=== PATIENT | female | born 1955 | race Caucasian/White ===

== ENCOUNTER 2016-07-22 18:31 | Emergency (ER) | payer BC ==
[~2016-07-22] VITALS: Ht 165.1 cm; Wt 65.8 kg
[~2016-07-22 18:31] MED LIST: CLIN300C3 PO; CPR500T PO; CYCL10TA9 PO; ESTR2TAB PO; GABA400T PO; GABA600T2; GABA600T2 PO; GBPN600T PO; HYDR-3454 PO; MECL-124 PO; MECL12.579 PO; MODA200T PO; OXC40TCR; OXC40TCR PO; OXYC40TA49 PO; PREG75CA PO; PRM25T; SIMV5TAB6 PO; TRAM50TA2 PO; VNL37.5T PO; ZLP10T PO; [UNRECOGNIZED DRUG - CODE] PO; [UNRECOGNIZED DRUG - REMARK]
[2016-07-22] MEDS ORDERED: MODA200T39 PO (19:09)
[2016-07-22] MEDS ORDERED: ESCI10TA55 PO (19:09)
[2016-07-22] MEDS ORDERED: ONDA8TAB12 PO (19:09)
[2016-07-22] MEDS ORDERED: NCT21TD TD (19:09)
[2016-07-22] MEDS ORDERED: ZOLP10TA5 PO (19:09)
[2016-07-22] MEDS ORDERED: OXYC10TA55 PO (19:09)
[2016-07-22] MEDS ORDERED: GABA800T2 PO (19:09)
[2016-07-22] MEDS ORDERED: BUSP15TA60 PO (19:09)
[2016-07-22] MEDS ORDERED: SERT50TA9 PO (19:09)
[2016-07-22] MEDS ORDERED: AMOXICILLIN 500 MG (POLYMOX) CAP PO STA (19:44)
--- NOTE | 2016-07-22 19:44 | ED EENT ---
History of Present Illness General Chief Complaint: Dental Problems/Pain Stated Complaint: L SIDE DENTAL PAIN Nursing Triage Note: C/O LEFT UPPER REAR DENTAL PAIN SINCE PM 07/21/16. History of Present Illness Time seen by provider: 19:20 Initial Comments Left upper dental pain 24 hours. Patient reports taking ibuprofen 400 mg 3 hours ago with no relief of symptoms. Per K Tracs the patient received OxyContin 10 mg #90 on 07/11/16, patient denies taking any OxyContin since yesterday. She reports she is trying to wean off of these however per K Tracs it does show that she has been getting 90 OxyContin monthly 20 mg 06/12/16 and 30 mg 05/12/16. She also gets Ambien 10 mg #30 and modafinil 200 mg #60 monthly. She reports decreased by mouth intake. As it's painful. She has been drinking extra water. Timing/Duration: gradual Prearrival Treatment: over the counter meds (ibuprofen) Modifying Factors: Improves With Rest Associated Symptoms: facial pain/swelling, malaise, No poor fluid intake, poor solids intake Allergies and Home Medications Allergies Coded Allergies: NKANo Known Allergies (Verified Allergy, Unknown, 05/29/08) Home Medications Amoxicillin 500 Mg Capsule, 500 MG PO TID, #30 Ref 0 Prescribed by: JUAN ROSE on 07/22/161944 Buspirone HCl 15 Mg Tablet, 1 TAB PO UD, #90 (Reported) Escitalopram Oxalate 10 Mg Tablet, 1 TAB PO UD, #60 (Reported) Gabapentin 800 Mg Tablet, 1 TAB PO UD, #90 (Reported) Modafinil 200 Mg Tablet, 1 TAB PO UD, #60 (Reported) Nicotine 1 Each Patch.td24, 1 PATCH TD UD, #28 (Reported) Ondansetron HCl 8 Mg Tablet, 1 TAB PO UD, #30 (Reported) Oxycodone HCl 10 Mg Tab.er.12h, 1 TAB PO UD, #90 (Reported) Sertraline HCl 50 Mg Tablet, 1 TAB PO UD, #10 (Reported) Zolpidem Tartrate 10 Mg Tablet, 1 TAB PO UD, #30 (Reported) Review of Systems Constitutional: no symptoms reported, see HPI Eyes: No Symptoms Reported, See HPI Ears: No Symptoms Reported, See HPI Nose: no symptoms reported, see HPI Mouth: see HPI, pain (left upper teeth), swelling Throat: no symptoms reported, see HPI Respiratory: no symptoms reported, see HPI Cardiovascular: no symptoms reported, see HPI Gastrointestinal: no symptoms reported, see HPI Musculoskeletal: no symptoms reported, see HPI Skin: no symptoms reported, see HPI Neurological: No Symptoms Reported, See HPI Hematologic/Lymphatic: No Symptoms Reported, See HPI Immunological/Allergic: no symptoms reported, see HPI All Other Systems Reviewed Negative Unless Noted: Yes Past Hapraft-Lbyuui-Tjzvts Hx Patient Social History Alcohol Use: Denies Use Recreational Drug Use: No Smoking Status: Current Everyday Smoker Type Used: Cigarettes 2nd Hand Smoke Exposure: Yes Recent Foreign Travel: No Contact w/Someone Who Travel: No Recent Infectious Disease Expo: No Recent Hopitalizations: No Immunizations Up To Date Tetanus Booster (TDap): Less than 5yrs Date of Influenza Vaccine: Jan 22, 2012 Seasonal Allergies Seasonal Allergies: No Surgeries HX Surgeries: Yes (back) Surgeries: Gallbladder, Hysterectomy, Orthopedic Respiratory Hx Respiratory Disorders: No Cardiovascular Hx Cardiac Disorders: No Neurological Hx Neurological Disorders: No Reproductive System : No Hx Reproductive Disorders: No Sexually Transmitted Disease: No 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 Genitourinary Hx Genitourinary Disorders: No Gastrointestinal Hx Gastrointestinal Disorders: No Musculoskeletal Hx Musculoskeletal Disorders: Yes Musculoskeletal Disorders: Fibromyalgia, Chronic Back Pain Endocrine Hx Endocrine Disorders: No HEENT HX ENT Disorders: No Cancer Hx Cancer: No Psychosocial Hx Psychiatric Problems: No Integumentary HX Skin/Integumentary Disorder: No Blood Transfusions Hx Blood Disorders: No Reviewed Nursing Assessment Reviewed/Agree w Nursing PMH: Yes Physical Exam Vital Signs Vital Sign - Last 12Hours 07/22/16 19:09 Temp 98.1 Pulse 98 Resp 18 B/P (MAP) 145/101 Pulse Ox 100 O2 Delivery Room Air General Appearance: WD/WN, no apparent distress Eyes: bilateral eye EOMI, bilateral eye PERRL, bilateral eye normal inspection Ears: bilateral ear TM normal, bilateral ear auricle normal, bilateral ear canal normal Nose: normal inspection, No active bleeding, No discharge, No sinus tenderness Mouth/Throat: normal mouth inspection, pharynx normal, dental tenderness ( right upper), maxillary swelling, No pharynx swelling, No pharynx tenderness, No tongue swollen, No tonsillar exudate Neck: non-tender, full range of motion, supple, normal inspection, No lymphadenopathy (R), No lymphadenopathy (L) Cardiovascular: normal peripheral pulses, regular rate, rhythm, no murmur Respiratory: chest non-tender, lungs clear Neurologic/Psychiatric: no motor/sensory deficits, alert, normal mood/affect, oriented x 3 Skin: normal color, warm/dry Progress/Results/Core Measures Results/Orders My Orders Orders - JUAN ROSE Lidocaine 2% Viscous 15 Ml (Xylocaine Vi (07/22/16 19:45) Amoxicillin Capsule (Polymox Capsule) (07/22/16 19:44) Medications Given in ED Current Medications Medications Dose Ordered Sig/Luke Route Start Time Stop Time Status Last Admin Dose Admin Lidocaine HCl 5 ml ONCE ONCE PO 07/22/16 19:45 07/22/16 19:46 DC 07/22/16 19:39 5 ML Vital Signs/I&O Vital Sign - Last 12Hours 07/22/16 07/22/16 19:09 19:50 Temp 98.1 98.1 Pulse 98 98 Resp 18 18 B/P (MAP) 145/101 Pulse Ox 100 100 O2 Delivery Room Air Blood Pressure Mean: 116 Progress Note : Time: 19:40 Progress Note Viscous lidocaine on 2 x 2's, applied to area of tenderness. Instructed to remove the before eating, drinking or sleep. Patient verbalized understanding. Departure Impression Impression: Primary Impression: Pain, dental Disposition: 01 HOME, SELF-CARE Condition: Stable Departure-Patient Inst. Decision time for Depature: 19:30 Referrals: REHAN DEL VALLE MD (PCP/Family) Primary Care Physician Patient Instructions: Dental Pain (DC) Add. Discharge Instructions: All discharge instructions reviewed with patient and/or family. Voiced understanding. Follow up with Dr. Horton in 2-3 days. Warm moist compresses to cheek. Use lidocaine gauze, every 4-6 hours for pain. Remove before sleeping Use Ibuprofen 600mg every 8 hours. Leave bridge out. Take antibiotics as prescribed. Use Oxycontin for severe pain, as previously prescribed. Scripts Amoxicillin (Amoxicillin) 500 Mg Capsule 500 MG PO TID, #30 CAP 0 Refills Prov: JUAN ROSE 07/22/16 Copy Copies To 1: REHAN DEL VALLE MD, AMY ARNP Jul 22, 2016 19:44
[2016-07-22] MEDS ORDERED: AMOX500C2 PO (19:45)
[2016-07-22] MEDS ORDERED: LIDOCAINE 2% VISCOUS 15 ML UDC PO ONE (19:45)
[2016-07-22 19:50] VITALS: BP 145/101
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
== END 2016-07-22 19:47 | disposition home or self-care (01) ==
LOC: EDUNIT# 18:31 → ER 18:32
DX: K08.9 Disorder of teeth and supporting structures, unspecified (principal); F17.210 Nicotine dependence, cigarettes, uncomplicated
CPT/HCPCS: 99282

== ENCOUNTER 2016-08-18 08:02 | Outpatient (CLI) | payer BC ==
[~2016-08-18] VITALS: Ht 165.1 cm; Wt 65.8 kg
[~2016-08-18 08:02] MED LIST changes: +AMOX500C2 PO; +BUSP15TA60 PO; +ESCI10TA55 PO; +GABA800T2 PO; +MODA200T39 PO; +NCT21TD TD; +ONDA8TAB12 PO; +OXYC10TA55 PO; +SERT50TA9 PO; +ZOLP10TA5 PO
[2016-08-18] MEDS ORDERED: BUPIVACAINE 0.5% 30 ML (SENSORCAINE) VIAL ONE (08:05)
[2016-08-18] MEDS ORDERED: LIDOCAINE 1% INJ 20 ML (XYLOCAINE) VIAL ONE (08:05)
[2016-08-18] MEDS ORDERED: TRIAMCINOLONE ACET (KENALOG-40) 40 MG/ML 1 ML VIAL ONE (08:05)
[2016-08-18 08:12] VITALS: BP 147/100
[2016-08-18 08:37] VITALS: BP 162/102
--- NOTE | 2016-08-18 12:40 | Pain Medicine-Procedure ---
Procedure Pre-Op/Post-Op Diagnosis Diagnosis: spondylosis without myelopathy, lumbar Indications for Operation Low back pain Attending Surgeon Robert Procedure Date of Service: Aug 18, 2016 PROCEDURE: Bilateral lumbar medial branch block at L3,L4, L5 and sacral ala under fluoroscopic guidance. PROCEDURE DETAILS: After obtaining an informed consent from the patient, the patient's chart was reviewed. The patient was brought to the procedure room and placed in a prone position. The back was prepped with antiseptic solution, and under fluoroscopic guidance the sacral ala was identified bilaterally. 0.5 cc of 1% Lidocaine to anesthetize the skin. Two 22 gauge 3.5 inch spinal needles were inserted under fluoroscopic guidance until it got in touch with the bone at the sacral ala bilaterally. Then under right oblique fluoroscopy, the junction of the superior articular process and transverse process on the right at L3, L4, and L5 was identified. 0.5 cc of 1% Lidocaine was used to anesthetize the skin. A 22 gauge 3.5 inch spinal needle was inserted through the skin under fluoroscopic guidance until it came in touch with the bone at the junction between the superior articular process and transverse process at each level. The exact steps were repeated for the left side. After needle aspiration,80 mg of kenalog total was injected in equal alliquots followed by 0.5 cc of 0.5% bupivacaine at each. The patient tolerated the procedure well. The needles were flushed and removed, and a Band-Aide was applied. Complications None VINEET WOOD MD Aug 18, 2016 12:40 pm
== END 2016-08-18 08:39 | disposition home or self-care (01) ==
LOC: CARD 08:02
PROVIDERS: ATTEND Pain Medicine Pain Medicine
DX: M47.816 Spondylosis without myelopathy or radiculopathy, lumbar region (principal); G89.4 Chronic pain syndrome; M51.16 Intervertebral disc disorders with radiculopathy, lumbar region; M96.1 Postlaminectomy syndrome, not elsewhere classified; Z79.899 Other long term (current) drug therapy
CPT/HCPCS: 64493; 64494; 64495

== ENCOUNTER 2016-09-01 09:25 | Outpatient (CLI) | payer BC ==
[~2016-09-01] VITALS: Ht 165.1 cm; Wt 65.8 kg
[2016-09-01] MEDS ORDERED: BUPIVACAINE 0.25% 30 ML (SENSORCAINE) VIAL ONE (10:07)
[2016-09-01] MEDS ORDERED: TRIAMCINOLONE ACET (KENALOG-40) 40 MG/ML 1 ML VIAL ONE (10:07)
[2016-09-01] MEDS ORDERED: LIDOCAINE 1% INJ 20 ML (XYLOCAINE) VIAL ONE (10:08)
[2016-09-01 10:13] VITALS: BP 160/107
[2016-09-01] MEDS ORDERED: BUPIVACAINE 0.5% 30 ML (SENSORCAINE) VIAL ONE (10:19)
[2016-09-01 10:53] VITALS: BP 153/111
--- NOTE | 2016-09-01 13:12 | Pain Medicine-Procedure ---
Procedure Pre-Op/Post-Op Diagnosis Diagnosis: spondylosis without myelopathy, lumbar Indications for Operation Low back pain Attending Surgeon Robert Procedure Date of Service: September 01, 2016 PROCEDURE: Bilateral lumbar medial branch block at L3,L4, L5 and sacral ala under fluoroscopic guidance. PROCEDURE DETAILS: After obtaining an informed consent from the patient, the patient's chart was reviewed. The patient was brought to the procedure room and placed in a prone position. The back was prepped with antiseptic solution, and under fluoroscopic guidance the sacral ala was identified bilaterally. 0.5 cc of 1% Lidocaine to anesthetize the skin. Two 22 gauge 3.5 inch spinal needles were inserted under fluoroscopic guidance until it got in touch with the bone at the sacral ala bilaterally. Then under right oblique fluoroscopy, the junction of the superior articular process and transverse process on the right at L3, L4, and L5 was identified. 0.5 cc of 1% Lidocaine was used to anesthetize the skin. A 22 gauge 3.5 inch spinal needle was inserted through the skin under fluoroscopic guidance until it came in touch with the bone at the junction between the superior articular process and transverse process at each level. The exact steps were repeated for the left side. After needle aspiration,80 mg of kenalog total was injected in equal alliquots followed by 0.5 cc of 0.5% bupivacaine at each. The patient tolerated the procedure well. The needles were flushed and removed, and a Band-Aide was applied. Complications None VINEET WOOD MD September 01, 2016 1:12 pm
== END 2016-09-01 10:54 | disposition home or self-care (01) ==
LOC: CARD 09:25
PROVIDERS: ATTEND Pain Medicine Pain Medicine
DX: M47.816 Spondylosis without myelopathy or radiculopathy, lumbar region (principal); G89.4 Chronic pain syndrome; Z79.899 Other long term (current) drug therapy
CPT/HCPCS: 64493; 64494; 64495

== ENCOUNTER → 2022-06-01 | Outpatient (CLI) | payer MEDICARE ==
[~2022-06-01] MED LIST changes: +CATHETER FLUSH 10 ML SYR IVP PRN; +ESCI-2 PO; -ESCI10TA55 PO; +GABA800T10 PO; -GABA800T2 PO; -NCT21TD TD; +NICO-685 TD; +ONDA-106 PO; -ONDA8TAB12 PO; +SERT-413 PO; -SERT50TA9 PO
--- NOTE | 2022-06-02 13:12 | Diagnostic Imaging Report ---
INDICATION: Lung carcinoma, initial staging. Serum blood glucose level at the time of injection is 94 mg/dL. Patient was administered 9.2 mCi F-18 FDG intravenously in the left antecubital location and PET imaging was performed from the top of the skull to mid thighs. Noncontrast CT was performed for attenuation correction and anatomic correlation. COMPARISON: No prior studies are available for comparison. There is symmetric activity throughout the brain. Soft tissues of the neck are unremarkable. No mediastinal or hilar hypermetabolism is identified. No pulmonary parenchymal hypermetabolism is seen. A nodular density noted on the noncontrast CT portion in the right lower lobe does not show FDG avidity. There is physiologic activity throughout the GI and genitourinary tracts of the abdomen and pelvis. No suspicious areas of hypermetabolism are detected. IMPRESSION: Essentially unremarkable PET/CT study. No suspicious areas of hypermetabolism are identified. Dictated by: Dictated on workstation # [id number]
== END ==
LOC: RAD 09:12
PROVIDERS: ATTEND Internal Medicine
DX: R91.8 Other nonspecific abnormal finding of lung field (principal)
CPT/HCPCS: 78815; A9552

== ENCOUNTER → 2022-06-01 | Outpatient (CLI) | payer MEDICARE ==
[~2022-06-01] MED LIST changes: -CATHETER FLUSH 10 ML SYR IVP PRN
== END ==
LOC: RAD 09:10
PROVIDERS: ATTEND Internal Medicine
DX: Z53.9 Procedure and treatment not carried out, unspecified reason (principal)